=== PATIENT | female | born 1980 | race Caucasian/White ===

== ENCOUNTER 2017-03-10 14:35 | Emergency (ER) | payer BC ==
[~2017-03-10 14:35] MED LIST: ACID CONTROL150 MG PO; BENTYL20 M1 PO; CLARITIN10 M2 PO; FAMOTIDINE PO; IBUPROFEN800 MG PO; LEVAQUIN PO; NO MEDICATIONS; OMEPRAZOLE10 MG PO; PERCOCET7.5 PO; PHENERGAN PO; PROMETHAZINE D118 ML PO; TYLOX 5/500 CAP1 CAP PO; VICODIN 5/500 T1 TAB PO
[2017-03-10] MEDS ORDERED: NO MEDICATIONS (14:43)
[2017-03-10 15:00] LABS: URINE SOURCE CLEAN CATCH
[2017-03-10 15:04] LABS: URINE APPEARANCE CLOUDY; URINE BILIRUBIN NEG (NEG); URINE BLOOD 3+ (NEG); URINE COLOR RED; URINE KETONE TRACE (NEG); URINE LEUKOCYTE ESTERASE 1+ (NEG); URINE NITRATE POS (NEG); URINE PROTEIN 3+ (NEG); URINE SPECIFIC GRAVITY >=1.030 (1.003-1.035)
[2017-03-10 15:07] LABS: MICRO INDICATED? YES; URINE GLUCOSE 50 MG/DL (NORM)
[2017-03-10 15:11] LABS: URINE RBC INNUM /[HPF] (0-2)
[2017-03-10 15:12] LABS: URINE BACTERIA 3+ (NEG); URINE SQUAMOUS EPITHELIAL CELL FEW /[HPF]; URINE WBC 25-50 /[HPF] (0-5)
== END 2017-03-10 15:47 | disposition home or self-care (01) ==
LOC: SED 14:35
PROVIDERS: Physician Assistant
DX: N30.90 Cystitis, unspecified without hematuria (principal); K21.9 Gastro-esophageal reflux disease without esophagitis; Z98.51 Tubal ligation status; Z90.49 Acquired absence of other specified parts of digestive tract
CPT/HCPCS: 81003; 99283